=== PATIENT | male | born 1985 | race Caucasian/White ===

== ENCOUNTER → 2019-09-17 16:43 | Outpatient (CLI) | payer OTHER, SELFPAY ==
[2019-09-17 17:38] LABS: Add Manual Diff / Slide Review NO; Basophils Absolute Auto 0 /uL (0-100); Basophils Percent Auto 0.3 % (0-2); Eosinophils Absolute Auto 100 /uL (0-450); Eosinophils Percent Auto 0.7 % (2-4); Lymphocytes Absolute Auto 2600 /uL (1100-4500); Lymphocytes Percent Auto 32.7 % (25-40); Mean Corpuscular HGB Conc 34.8 % (30-36); Mean Corpuscular Hemoglobin 31.7 PG (26-34); Mean Corpuscular Volume 91.1 fL (80-100); Monocytes Absolute Auto 600 /uL (0-900); Monocytes Percent Auto 7.2 % (3-14); Neutrophils Absolute Auto 4600 /uL (1500-7000); Neutrophils Percent Auto 59.1 % (50-75); Platelet Count 198 X10^3/uL (150-400); Red Blood Cell Count 5.38 X10^6/uL (4.5-5.9); Red Cell Distribution Width 12.5 % (11.6-14.8); White Blood Cell Count 7.8 X10^3/uL (4.5-11.0)
[2019-09-17 18:20] LABS: Blood Urea Nitrogen 15 mg/dL (9-20); Calcium 9.4 mg/dL (8.4-10.2); Carbon Dioxide 27 mmol/L (22-32); Chloride 104 mmol/L (98-107); Estimated Glomerular Filt Rate > 60.0 mL/min (>60); Glucose 104 mg/dL (70-100); HEMOLYSIS 15 (0-50); Potassium 3.8 mmol/L (3.4-5.1); Sodium 140 mmol/L (137-145)
== END ==
PROVIDERS: PCP Family Medicine; Visit Provider Physician Assistant
DX: Z13.88 Encounter for screening for disorder due to exposure to contaminants (principal)
CPT/HCPCS: 36415; 80048; 83655; 85025

== ENCOUNTER → 2020-09-03 13:22 | Outpatient (CLI) | payer OTHER, SELFPAY ==
[2020-09-03 14:11] LABS: COVID19 -Nasal RAPID Negative (Negative)
== END ==
PROVIDERS: PCP Family Medicine; Referring Provider Physician Assistant; Visit Provider Physician Assistant
DX: Z20.828 Contact with and (suspected) exposure to other viral communicable diseases (principal)
CPT/HCPCS: 87635

== ENCOUNTER → 2021-03-27 12:58 | Outpatient (CLI) | payer OTHER, SELFPAY ==
--- NOTE | 2021-03-27 13:01 | DI.RAD.S_ITS ---
PROCEDURE: XR WRIST LT MIN 3V INDICATIONS: fall, L wrist pain/swelling TECHNIQUE: 3 views of the wrist were acquired. COMPARISON: [facility], CR, XR FOREARM LT 2V, 03/27/2021, 13:06. FINDINGS: Bones: There is a minimally displaced fracture seen involving the radial styloid, with intra-articular involvement. A nondisplaced ulnar styloid fracture is also seen. On the lateral view, there also appears to be a fracture of the carpal bone, yet this may be chronic. The donor site is uncertain. Soft tissues: No suspicious soft tissue calcifications. IMPRESSION: Mildly displaced fracture of the radial styloid, with intra-articular involvement. Minimally displaced ulnar styloid fracture. Potential additional carpal bone fracture seen on one view only. This appears chronic and may simply be artifactual, however. Please consider dedicated wrist CT for further evaluation. Dictated by: Rodger Garcia M.D. on 03/27/2021 at 12:29 Approved by: Rodger Garcia M.D. on 03/27/2021 at 12:30
--- NOTE | 2021-03-27 13:01 | DI.RAD.S_ITS ---
PROCEDURE: XR FOREARM LT 2V INDICATIONS: fall, L wrist pain/swelling TECHNIQUE: 2 views of the forearm were acquired. COMPARISON: [facility], CR, XR WRIST LT MIN 3V, 03/27/2021, 13:06. FINDINGS: Bones: A mildly displaced radial styloid fracture is seen, with intra-articular involvement. No more proximal fractures are seen. The nondisplaced ulnar styloid fracture that can be seen on the accompanying wrist plain films is not seen on this study. Soft tissues: No suspicious soft tissue calcifications or masses. IMPRESSION: Radial styloid fracture, with intra-articular involvement. Dictated by: Rodger Garcia M.D. on 03/27/2021 at 12:31 Approved by: Rodger Garcia M.D. on 03/27/2021 at 12:31
== END ==
PROVIDERS: PCP Family Medicine; Referring Provider Physician Assistant; Visit Provider Physician Assistant
DX: S52.615A Nondisplaced fracture of left ulna styloid process, initial encounter for closed fracture (principal); S52.512A Displaced fracture of left radial styloid process, initial encounter for closed fracture; M25.532 Pain in left wrist; W11.XXXA Fall on and from ladder, initial encounter
CPT/HCPCS: 73090; 73110

== ENCOUNTER → 2021-03-31 19:41 | Outpatient (CLI) | payer OTHER, SELFPAY ==
--- NOTE | 2021-03-31 | DI.MRI.S_ITS ---
PROCEDURE: MR WRIST LT WO CON INDICATIONS: non displaced fx of radial styloid TECHNIQUE: Noncontrast coronal proton density fast spin echo and T2 fast spin echo with fat saturation; coronal 3-D gradient echo, axial T1 spin echo and T2 fast spin echo with fat saturation, sagittal T1 spin echo through the wrist. COMPARISON: [facility], CR, XR WRIST LT MIN 3V, 03/27/2021, 13:06. FINDINGS: Image quality: Excellent. Bones and cartilage: Unchanged alignment of radial styloid fracture previously discussed on the prior comparison radiographs. There is additional marrow edema present within the ulnar aspect of the radius presumably contusion Carpal ligaments: The scapholunate and lunotriquetral ligaments appear intact although not well evaluated due to cast, which precludes use of appropriate surface coil. The scapholunate ligament appears grossly intact on axial pulse sequences. There is edema in the region of the proximal radioscaphocapitate ligament, at the radial attachment which could be reactive to fracture, versus concomitant sprain. Triangular fibrocartilage complex: The triangular fibrocartilage appears intact. The adjacent meniscal homolog appears normal in the absence of intra-articular contrast. The extensor carpi ulnaris tendon is normal in location and morphology. Tendons and soft tissues: The carpal tunnel structures appear normal, including the median nerve. The ulnar nerve appears normal within Guyon's canal. All six extensor tendon compartments demonstrate normal morphology, without pathologic tendon sheath fluid. No soft tissue ganglion cysts. IMPRESSION: Scapholunate ligament not well seen due to surface coil considerations as above however appears grossly intact where visualized. If there is persistent clinical concern, further evaluation with MR arthrography could be performed as clinically warranted. Sprain of the radioscaphocapitate ligament/joint capsule. The differential includes reactive changes to radial styloid fracture Unchanged alignment of radial styloid fracture. Minimal associated marrow edema Separate focus of marrow edema at the ulnar aspect of the distal radius in keeping with marrow contusion. Dictated by: Dheeraj Hernandez M.D. on 04/01/2021 at 10:53 Approved by: Dheeraj Hernandez M.D. on 04/01/2021 at 11:02
== END ==
PROVIDERS: PCP Family Medicine; Referring Provider Orthopaedic Surgery Adult Reconstructive Orthopaedic Surgery; Visit Provider Orthopaedic Surgery Adult Reconstructive Orthopaedic Surgery
DX: S52.515A Nondisplaced fracture of left radial styloid process, initial encounter for closed fracture (principal); X58.XXXA Exposure to other specified factors, initial encounter
CPT/HCPCS: 73221